=== PATIENT | female | born 1985 | race Caucasian/White ===

== ENCOUNTER 2019-04-16 13:20 | Emergency (ER) | payer BC ==
[~2019-04-16] VITALS: Ht 160 cm; Wt 86.2 kg
[2019-04-16] MEDS ORDERED: CELEXA20 MG (13:36)
[2019-04-16] MEDS ORDERED: VYVANSE50 MG (13:37)
== END 2019-04-16 22:46 | disposition home or self-care (01) ==
LOC: ER 13:20
DX: K80.20 Calculus of gallbladder without cholecystitis without obstruction (principal); K29.70 Gastritis, unspecified, without bleeding; R10.11 Right upper quadrant pain